=== PATIENT | female | born 1995 | race Two or more races ===

== ENCOUNTER 2018-02-07 09:04 | Outpatient (CLI) | END 2018-02-07 09:05 | disposition home or self-care (01) | LOC: LAB 09:04 | PROVIDERS: ATTEND Family Medicine | DX: R53.82 Chronic fatigue, unspecified (principal); L65.9 Nonscarring hair loss, unspecified | CPT/HCPCS: 36415; 80053; 82306; 82607; 82652; 82746; 84436; 84439; 84443; 84481; 85025 ==